=== PATIENT | male | born 1995 | race Caucasian/White ===

== ENCOUNTER 2019-02-24 15:19 | Emergency (ER) | payer OTHER ==
[~2019-02-24] VITALS: Ht 175.3 cm; Wt 74.8 kg
[2019-02-24 17:27] VITALS: BP 121/69
== END 2019-02-24 17:27 | disposition home or self-care (01) ==
LOC: ED 15:19
DX: G43.909 Migraine, unspecified, not intractable, without status migrainosus (principal); R11.10 Vomiting, unspecified; H53.8 Other visual disturbances
CPT/HCPCS: J3030; Q0162

== ENCOUNTER 2020-03-26 10:51 | Emergency (ER) | payer OTHER ==
[~2020-03-26] VITALS: Ht 172.7 cm; Wt 94.3 kg
[2020-03-26 11:03] VITALS: Ht 172.7 cm; Wt 94.3 kg
[2020-03-26 14:17] VITALS: BP 109/65
== END 2020-03-26 14:17 | disposition home or self-care (01) ==
LOC: ED 10:51
DX: G43.909 Migraine, unspecified, not intractable, without status migrainosus (principal)
CPT/HCPCS: J0780; J1885